=== PATIENT | female | born 1955 | race Caucasian/White ===

== ENCOUNTER 2020-04-01 11:13 | Emergency (ER) | payer OTHER ==
[~2020-04-01] VITALS: Ht 172.7 cm; Wt 131.8 kg
[2020-04-01 11:32] VITALS: BP 138/75
[2020-04-01] MEDS ORDERED: OXYC1TAB15 PO (12:25)
--- NOTE | 2020-04-01 12:25 | PHYS DOC ---
Past Medical History Past Medical History: A-Fib, Cancer, CHF, Hypertension Past Surgical History: Hip Replacement, Hysterectomy Additional Past Surgical Histo: BACK Smoking Status: Never Smoker Alcohol Use: None Drug Use: None General Adult EDM: Chief Complaint: OTHER COMPLAINTS HPI: HPI: Patient is a 65-year-old male presents with report of having a Rhino Rocket epistaxis device placed to right nare at [facility] 4 days ago. Patient reports had been bleeding for approximately 15 hours prior to its placement. Patient does report use of Coumadin. Reports her INR at that time was 2.0. Patient was to follow with ENT and has an appointment tomorrow. Patient reports significant pain to right face and is requesting to have the device removed. Denies any fever or chills. Patient reports she has been taking 2 tablets of her 5/325 hydrocodone/APAP approximately every 4 hours for pain during this period of time. Patient reports pain continues once the medications wear off. Patient reports concerned she is going to run out of her chronic pain medications. Review of Systems: Review of Systems: Constitutional: Denies fever or chills Eyes: Denies redness or eye pain HENT: Denies nasal congestion; right facial pain and history of epistaxis Respiratory: Denies cough or shortness of breath Cardiovascular: Denies chest pain or palpitations GI: Denies abdominal pain, nausea, or vomiting : Denies dysuria or hematuria Musculoskeletal: Denies back pain or joint pain Integument: Denies rash or skin lesions Neurologic: Denies headache, focal weakness or sensory changes Complete systems were reviewed and found to be within normal limits, except as documented in this note. Allergies: Allergies: Allergies Coded Allergies Type Severity Reaction Last Updated Verified duloxetine Allergy Severe ANXIETY 04/01/20 Yes Physical Exam: PE: Constitutional: Well developed, well nourished, uncomfortable, non-toxic appear ance HENT: Normocephalic, atraumatic, right sided Rhino rocket epistaxis device in place, scant sanginous discharge noted, no active bleeding appreciated, pharynx clear Eyes: Conjunctiva normal, no discharge Neck: Normal range of motion, no tenderness, supple Lungs & Thorax: No respiratory distress, equal chest rise and fall Skin: Warm, dry, no erythema, no rash Extremities: No tenderness, ROM intact, no edema Neurologic: Alert and oriented X 3,no focal deficits noted Psychologic: Affect normal, judgment normal Current Patient Data: Vital Signs: Vital Signs Date Time Temp Pulse Resp B/P (MAP) Pulse Ox O2 Delivery O2 Flow Rate FiO2 04/01/20 11:32 99.0 107 18 138/75 (96) 94 Room Air 99.0 EKG: EKG: [] Radiology/Procedures: Radiology/Procedures: [] Course & Med Decision Making: Course & Med Decision Making Patient presents with report of significant right facial pain after placement of Rhino Rocket epistaxis device on Monday at [facility]. Patient has an appointment to see ENT tomorrow. Patient requesting removal secondary to discomfort. Patient does report use of Coumadin. Reports last INR at [facility] was 2.0. Patient advised would be better to have ENT remove in case of continued bleeding. No active bleeding noted however some scant sanguinous discharge appreciated. No pharyngeal bleeding noted. Removed approximately 2 mL of air from device. Patient reports current use of [place] 5/325 mg tablets. Reports last took 2 tablets approximately 2 hours prior to arrival. Patient given prescription for Percocet to hold her over with increased pain until seen by ENT tomorrow. Patient stable for discharge with outpatient follow-up with PCP/ENT. Discussed findings and plan with patient and family, who acknowledge understanding and agreement. Mayra Disclaimer: Mayra Disclaimer: This electronic medical record was generated, in whole or in part, using a voice recognition dictation system. Departure Departure Impression: Primary Impression: Hx of epistaxis Disposition: 01 DC HOME SELF CARE/HOMELESS Condition: STABLE Referrals: RENU BARRETT (PCP) Patient Instructions: Nosebleed, [id number] Additional Instructions: Take Percocet as needed for pain due to nose bleed device. Scripts Oxycodone/Apap 5-325 (PERCOCET 5-325 MG TABLET ) 1 Each Tablet 1 TAB PO PRN Q6HRS PRN for PAIN, #10 TAB 0 Refills Prov: SEEMA DAVIS DO 04/01/20 SEEMA DAVIS DO Apr 01, 2020 12:25
== END 2020-04-01 12:30 | disposition home or self-care (01) ==
LOC: ER 11:13
DX: R04.0 Epistaxis (principal); I11.0 Hypertensive heart disease with heart failure; I50.9 Heart failure, unspecified; I48.91 Unspecified atrial fibrillation; Z88.8 Allergy status to other drugs, medicaments and biological substances
CPT/HCPCS: 99284

== ENCOUNTER → 2021-06-23 | Outpatient (CLI) | payer OTHER ==
[~2021-06-23] MED LIST: IOHEXOL 240 MG/ML 50ML VIAL. PO ONE; IOHEXOL 300 MG/ML 100ML VIAL. IV ONE; OXYC1TAB15 PO
--- NOTE | 2021-06-23 16:27 | KCIC ---
EXAM: Abdomen and pelvis CT with intravenous contrast. HISTORY: Mass.. TECHNIQUE: Computed tomographic images of the abdomen and pelvis were obtained following the administ ration of intravenous contrast. Multiplanar reformatting was performed. *One or more of the following individualized dose reduction techniques were utilized for this examina tion: 1. Automated exposure control. 2. Adjustment of the mA and/or kV according to patient size. 3. Use of iterative reconstruction technique. COMPARISON: None. FINDINGS: Evaluation of the lower thorax demonstrates posterior dependent and basilar atelectasis. Th ere is cardiomegaly. There is coronary artery calcification. There is hepatomegaly and hepatic steato sis. The gallbladder is surgically absent. The pancreas is unremarkable. There are splenules adjacent to a normal sized spleen. There is a small ill-defined region of hypodensity within the spleen which is likely due to physiologic heterogeneous parenchymal enhancement. There is slight nodular thickeni ng of the left adrenal gland. There is a small right renal cyst measuring 1.2 cm. This demonstrates a ttenuation slightly greater than simple fluid. There is no appendicitis. There is a right supra umbilical hernia containing a segment of proximal tr ansverse colon. The hernia defect measures approximately 2.5 cm and the hernia sac measures 6.7 cm. T here is stool within the herniated segment of transverse colon and slight suspected colonic wall thic kening and surrounding stranding. There is no evidence of mechanical bowel obstruction proximal to th is level. There is distal colonic diverticulosis. The bladder is unremarkable. The uterus is is surgi chetna absent. There is aortic and aortic branch vessel atherosclerosis. There is no lymphadenopathy. There is a right hip arthroplasty. There is internal fixation of the proximal left femur. There is de generative change throughout the spine. IMPRESSION: 1. Moderate right supraumbilical hernia containing a segment of stool filled proximal transverse colo n. There may be a component of bowel incarceration. There is no mechanical obstruction. 2. Distal colonic diverticulosis. 3. Hepatomegaly and hepatic steatosis. 4. Small right renal cyst, possibly a complicated cyst. Renal sonography can be performed to confirm benignity. Electronically signed by: Avril Harris MD (06/23/2021 4:25 PM) [facility]
== END ==
LOC: KCIC CT 13:13
DX: R16.0 Hepatomegaly, not elsewhere classified (principal); K42.9 Umbilical hernia without obstruction or gangrene; K76.0 Fatty (change of) liver, not elsewhere classified; K57.30 Diverticulosis of large intestine without perforation or abscess without bleeding; N28.1 Cyst of kidney, acquired; I51.7 Cardiomegaly; I25.10 Atherosclerotic heart disease of native coronary artery without angina pectoris; I70.0 Atherosclerosis of aorta; J98.11 Atelectasis; E27.8 Other specified disorders of adrenal gland; M47.819 Spondylosis without myelopathy or radiculopathy, site unspecified; Z90.49 Acquired absence of other specified parts of digestive tract; Z90.710 Acquired absence of both cervix and uterus; Z96.641 Presence of right artificial hip joint
CPT/HCPCS: 74177; 82565; Q9966; Q9967